=== PATIENT | female | born 1995 | race Caucasian/White ===

== ENCOUNTER 2023-11-20 10:53 | Inpatient (IN) ==
[2023-11-20] MEDS ORDERED: Lactated Ringers 1000 ml BAG 1,000 ML IV ONE (11:37)
[2023-11-20] MEDS ORDERED: Buffered Lidocaine 1% SYRIN 1 ml INTRADERM ONE (11:37)
[2023-11-20] MEDS ORDERED: Lidocaine 1% VIAL 10 MG/ML 30 ML VIAL INJ PRN (11:37)
[2023-11-20] MEDS ORDERED: miSOPROStol 100 mcg TAB VAGINAL ONE (11:52)
[2023-11-20 13:24] LABS: Urine Benzodiazepine Screen None Detected (None Detect); Urine Cannabinoids Screen None Detected (None Detect); Urine Opiates Screen None Detected (None Detect)
[2023-11-20] MEDS ORDERED: Oxytocin in LR 20,000 MILLI.UNIT/1,000 ML BAG IV SCH (17:00)
[2023-11-20] MEDS: Lactated Ringers 1000 ml BAG 1,000 ML IV SCH ×2 (17:29→23:28)
[2023-11-20 18:20] LABS: ABS Eosinophils 0.1 10^3/uL (0.0-0.5); ABS Lymphocytes 2.3 10^3/uL (1.0-4.8); ABS Monocytes 0.6 10^3/uL (0.0-0.9); ABS Neutrophils 7.9 10^3/uL (1.5-7.6); ABS Nucleated RBC 0.01 10^3/ul; Eosinophil % 0.7 %; Lymphocyte % 21.3 %; Mean Corpuscular Hemoglobin 29.6 pg (27-33); Mean Corpuscular Hgb Conc 35.3 g/dL (31-36); Mean Platelet Volume 9.1 fL (7.5-11.2); Nucleated Red Blood Cells % 0.1 %/100WBC (0.0-0.8); Platelet Count 170 10^3/uL (150-450); Red Blood Count 4.04 10^6/uL (3.63-4.92); Red Cell Distribution Width 12.9 % (12-17); White Blood Count 10.9 10^3/uL (3.8-11.8)
[2023-11-20] MEDS ORDERED: Lidocaine 1.5% EPI 1:200,000 30 ML SDV ONE (23:56)
[2023-11-20] MEDS ORDERED: OBEPIDURAL (200 ML) 200 ML EPIDURAL ONE (23:56)
[2023-11-21] MEDS ORDERED: Lactated Ringers 1000 ml BAG 500 ML IV PRN ×2 (01:55)
[2023-11-21] MEDS ORDERED: Phenylephrine 40 mcg/mL 10mL (400mcg) SYRINGE IV PUSH PRN ×2 (01:55)
[2023-11-21] MEDS ORDERED: Lactated Ringers 1000 ml BAG 1,000 ML IV ONE (01:55)
[2023-11-21] MEDS ORDERED: Sodium Citrate/Citric Acid LIQ 15 ML UDC PO PRN (01:55)
[2023-11-21] MEDS ORDERED: Famotidine IV 10 MG/ML 2 ml VIAL (20 mg) IV PRN (01:55)
[2023-11-21] MEDS ORDERED: OBEPIDURAL (200 ML) 200 ML EPIDURAL SCH (02:00)
[2023-11-21] MEDS ORDERED: Lactated Ringers 1000 ml BAG 1,000 ML IV SCH ×2 (02:00→10:00)
[2023-11-21 02:06] LABS: Urine Appearance Clear; Urine Bilirubin Negative (Negative); Urine Blood Negative (Negative); Urine Color Straw; Urine Glucose Negative (Negative); Urine Ketones Trace (Negative); Urine Nitrite Negative (Negative); Urine Protein Negative (Negative); Urine Specific Gravity 1.009 (1.002-1.030); Urine Urobilinogen Negative (Negative)
[2023-11-21] MEDS: Lactated Ringers 1000 ml BAG 1,000 ML IV SCH ×2 (03:00→04:36)
[2023-11-21] MEDS ORDERED: Oxytocin in LR 20,000 MILLI.UNIT/1,000 ML BAG IV SCH (10:00)
[2023-11-21] MEDS: Dibucaine 1% OINT 28.35 GM TUBE PR PRN ×2 (11:43→17:14)
[2023-11-21] MEDS: Witch Hazel PAD JAR TOPICAL PRN ×2 (11:43→23:26)
[2023-11-22 07:30] VITALS: BP 99/52
[2023-11-22 07:30] LABS: ABS Eosinophils 0.1 10^3/uL (0.0-0.5); ABS Lymphocytes 3.3 10^3/uL (1.0-4.8); ABS Monocytes 0.7 10^3/uL (0.0-0.9); ABS Neutrophils 7.7 10^3/uL (1.5-7.6); Eosinophil % 0.8 %; Hematocrit 27.6 % (35-45); Hemoglobin 9.6 g/dL (11.5-14.3); Lymphocyte % 27.8 %; Mean Corpuscular Hemoglobin 29.5 pg (27-33); Mean Corpuscular Hgb Conc 34.9 g/dL (31-36); Mean Corpuscular Volume 84.5 fL (80-97); Mean Platelet Volume 8.5 fL (7.5-11.2); Platelet Count 142 10^3/uL (150-450); Red Blood Count 3.27 10^6/uL (3.63-4.92); Red Cell Distribution Width 13.3 % (12-17); White Blood Count 11.8 10^3/uL (3.8-11.8)
== END 2023-11-22 14:51 | disposition home or self-care (01) | DRG 560 ==
LOC: MCHOBOUT 10:53 → MCHOB 11:38
PROVIDERS: ADMIT Midwife; ATTEND Midwife